=== PATIENT | male | born 1930 | race Caucasian/White ===

== ENCOUNTER 2016-05-23 12:57 | Emergency (ER) | payer OTHER ==
[~2016-05-23] VITALS: Ht 177.8 cm; Wt 79.4 kg
--- NOTE | ~2016-05-23 | EKG ---
[address] [place] [address] ELECTROCARDIOGRAM REPORT Name: JANEEN MOSQUERA Room #: DEP Purnima#: [id number] Admission: 05/23/16 Attend Phys: Discharge: 05/23/16 Date of : 28 Report #: [id number] THIS REPORT FOR: //name// [facility] ED Test Date: 2016-05-23 Test Time: 13:08:53 Pat Name: JANEEN MOSQUERA Department: Room: Gender: [employer]: Bry UMAÑA : 1930 Requested By: Deepthi Rodriguez Order Number: [id number] MD: Gold Powell Measurements Intervals [place] Rate: 70 P: 10 LA: 148 QRS: -60 QRSD: 138 T: -2 QT: 410 QTc: 443 Interpretive Statements Sinus rhythm RBBB and LAFB No previous ECG available for comparison Electronically Signed On 05-24-2016 15:27:16 CDT by Gold Powell [email or web address] <ELECTRONICALLY SIGNED> By: Gold Powell MD 05/24/16 1527 [id number] MD TREVOR Cobian
[2016-05-23 13:03] VITALS: BP 105/62
[2016-05-23] MEDS ORDERED: FLOMAX0.4 MG PO (13:10)
[2016-05-23] MEDS ORDERED: LIPITOR10 MG PO (13:10)
[2016-05-23 13:17] LABS: ABSOLUTE NEUTROPHILS 2.6 thou/uL (1.4-8.2); BASOPHILS 0.5 % (0.0-2.0); EOSINOPHILS 1.3 % (0.0-3.0); HEMATOCRIT 36.3 % (42.0-52.0); HEMOGLOBIN 12.2 gm/dL (14.0-18.0); LYMPHOCYTES 38.9 % (24.0-44.0); MCH 29.8 pg (26.0-34.0); MCHC 33.7 g/dL (28.0-37.0); MCV 88.6 fL (80.0-100.0); MONOCYTES 9.6 % (1.0-8.0); PLATELET COUNT 165 thou/uL (150-400); POLYS 49.7 % (36.0-66.0); RBC 4.09 mil/uL (4.50-6.00); RDW 14.2 % (10.5-14.5); WBC 5.2 thou/uL (4.0-11.0)
[2016-05-23 13:21] LABS: ANION GAP 8 mmol/L (7-16); BUN 32 mg/dL (7-18); CALCIUM 9.4 mg/dL (8.5-10.1); CHLORIDE 107 mmol/L (98-107); CO2 26 mmol/L (21-32); CREATININE 1.4 mg/dL (0.6-1.3); GLUCOSE 105 mg/dL (70-99); POTASSIUM 4.4 mmol/L (3.5-5.1); SODIUM 141 mmol/L (136-145)
[2016-05-23 13:22] LABS: MANUAL DIFF NO
[2016-05-23 13:29] LABS: TROPONIN-I < 0.04 ng/mL (<0.04-0.07)
== END 2016-05-23 14:04 | disposition home or self-care (01) ==
LOC: ER 12:57
PROVIDERS: Emergency Medicine
DX: R00.2 Palpitations (principal); R51 Headache